=== PATIENT | female | born 1995 | race Caucasian/White ===

== ENCOUNTER → 2023-08-02 16:14 | Outpatient (REF) | payer BC, OTHER, SELFPAY ==
[2023-08-02 17:48] LABS: % Eosinophils 1.2 % (0-6); % Immature Granulocytes 0.3 % (0-0.5); % Lymphocytes 28.9 % (20.5-51.1); % Neutrophils 65.6 % (42.2-75.2); Absolute Lymphocytes 0.9 10^3/uL (1.2-3.4); Absolute Monocytes 0.1 10^3/uL (0.1-0.6); Absolute Neutrophils 2.1 10^3/uL (1.4-6.5); Hematocrit 31.1 % (37.0-47.0); Hemoglobin 11.3 g/dL (12.0-16.0); Mean Corp Hgb Conc. 36.3 g/dL (33.0-37.0); Mean Corpuscular Hgb 34.9 pg (27.0-31.0); Mean Platelet Volume 9.5 fL (7.4-10.4); Nucleated Red Blood Cells % 0 %; Platelet Count 142 10^3/uL (130-400); Red Blood Cell Count 3.24 10^6/uL (4.20-5.40); Red Cell Dist. Width 13.9 % (11.5-14.5); White Blood Cell Count 3.2 10^3/uL (4.8-10.8)
[2023-08-02 18:01] LABS: INR 1.03; PT 13.5 Sec (11.4-14.6)
[2023-08-02 18:02] LABS: APTT 35.6 Sec (23.4-35.0)
[2023-08-02 18:25] LABS: ALT (SGPT) 29 U/L (0-35); AST (SGOT) 34 U/L (14-36); Albumin 4.1 g/dl (3.5-5.0); Alkaline Phosphatase 120 U/L (38-126); Blood Urea Nitrogen 14 mg/dl (7-17); Calcium 9.6 mg/dl (8.4-10.2); Carbon Dioxide 29 mmol/L (22-30); Chloride 94 mmol/L (98-107); Glucose 98 mg/dl (70-99); Iron 150 ug/dl (37-170); Potassium 4.2 mmol/L (3.5-5.1); Sodium 128 mmol/L (135-145); Total Bilirubin 0.1 mg/dl (0.2-1.3); Total Protein 7.2 g/dl (6.3-8.2); eGFR > 60.00
[2023-08-02 18:34] LABS: Percent Saturation 48 % (20-50); Total Iron Binding Capacity 310 ug/dl (265-497)
[2023-08-05 21:29] LABS: Oxcarbazepine Metabolite 28 ug/mL (3-35)
== END ==
LOC: RAD 16:14
PROVIDERS: ATTENDING PHYSICIAN Family Medicine; FAMILY PHYSICIAN Neurological Surgery; REFERRING PHYSICIAN Internal Medicine
DX: R25.2 Cramp and spasm (principal); G82.50 Quadriplegia, unspecified; F41.9 Anxiety disorder, unspecified; D64.9 Anemia, unspecified; R63.4 Abnormal weight loss; Z51.81 Encounter for therapeutic drug level monitoring; G80.0 Spastic quadriplegic cerebral palsy; Z01.818 Encounter for other preprocedural examination
CPT/HCPCS: 36415; 74019; 80053; 80183; 83540; 83550; 84443; 85025; 85610; 85730; 93005

== ENCOUNTER → 2023-08-08 14:47 | Outpatient (REF) | payer BC, OTHER, SELFPAY ==
[2023-08-08 15:52] LABS: Blood Urea Nitrogen 15 mg/dl (7-17); Calcium 9.5 mg/dl (8.4-10.2); Carbon Dioxide 28 mmol/L (22-30); Chloride 97 mmol/L (98-107); Glucose 99 mg/dl (70-99); Potassium 3.8 mmol/L (3.5-5.1); Sodium 131 mmol/L (135-145); eGFR > 60.00
== END ==
LOC: REG 14:47
PROVIDERS: ATTENDING PHYSICIAN Family Medicine
DX: E87.1 Hypo-osmolality and hyponatremia (principal); G80.1 Spastic diplegic cerebral palsy; G82.50 Quadriplegia, unspecified
CPT/HCPCS: 36415; 80048

== ENCOUNTER → 2023-10-11 15:56 | Outpatient (REF) | payer BC, OTHER, SELFPAY ==
[2023-10-11 16:37] LABS: Blood Urea Nitrogen 12 mg/dl (7-17); Calcium 9.3 mg/dl (8.4-10.2); Carbon Dioxide 26 mmol/L (22-30); Chloride 100 mmol/L (98-107); Glucose 75 mg/dl (70-99); Potassium 4.2 mmol/L (3.5-5.1); Sodium 133 mmol/L (135-145); eGFR > 60.00
== END ==
LOC: REG 15:56
PROVIDERS: ATTENDING PHYSICIAN Family Medicine
DX: E87.1 Hypo-osmolality and hyponatremia (principal)
CPT/HCPCS: 36415; 80048

== ENCOUNTER → 2024-04-12 13:06 | Outpatient (REF) | payer OTHER, SELFPAY | LOC: RAD 13:06 | PROVIDERS: ATTENDING PHYSICIAN Internal Medicine Critical Care Medicine; FAMILY PHYSICIAN Family Medicine | DX: R05.1 Acute cough (principal); R09.89 Other specified symptoms and signs involving the circulatory and respiratory systems | CPT/HCPCS: 71046 ==

== ENCOUNTER → 2024-07-09 14:26 | Outpatient (REF) | payer OTHER, SELFPAY | LOC: HWRAD 14:26 | PROVIDERS: ATTENDING PHYSICIAN Urology; FAMILY PHYSICIAN Family Medicine | DX: N31.9 Neuromuscular dysfunction of bladder, unspecified (principal); R33.9 Retention of urine, unspecified; N39.41 Urge incontinence; N39.0 Urinary tract infection, site not specified | CPT/HCPCS: 76770 ==

== ENCOUNTER → 2024-08-15 09:39 | Outpatient (REF) | payer OTHER, SELFPAY ==
[2024-08-15 17:04] LABS: Urine Albumin 2+ (Neg - Trace); Urine Bilirubin Negative (Negative); Urine Character Cloudy (Clear); Urine Color Yellow; Urine Glucose Negative (Negative); Urine Ketone Negative (Negative); Urine Leukocyte 3+ (Negative); Urine Nitrite Positive (Negative); Urine Occult Blood 3+ (Negative); Urine Urobilinogen Negative (Neg - 1+)
[2024-08-15 17:16] LABS: Urine Bacteria Many (Negative); Urine Squamous Cell 0-2 /LPF (Few); Urine White Cell >100 /HPF (0-5)
== END ==
LOC: CLAB 09:39
PROVIDERS: ATTENDING PHYSICIAN Urology
DX: N39.0 Urinary tract infection, site not specified (principal)
CPT/HCPCS: 81003; 81015; 87077; 87086; 87186

== ENCOUNTER 2024-08-28 12:16 | Inpatient (IN) | payer OTHER, SELFPAY ==
[2024-08-28 08:34] VITALS: BP 131/103
--- NOTE | 2024-08-28 09:19 | ED.GENMED ---
History of Present Illness
General
Chief Complaint: Seizure
Source: family (Mother)
Time Seen by Provider: 08/28/24 08:49
History of Present Illness
History of Present Illness:
29-year-old female presents to the emergency room for evaluation of frequent seizures. Patient has history of cerebral palsy and seizure disorder. She is on multiple antiepileptic medications. Patient is followed at [facility] by Dr. Clinton.
Patient was recently diagnosed with a urinary tract infection and treated with Augmentin. Patient completed the course of antibiotics 5 or 6 days ago. Last seizure was this morning at about 7 AM. Patient was given a rescue nasal spray both last
night and this morning. Seizure activity is described as sometimes tonic-clonic but frequently facial movements.
Past History
Past History
ED Past Medical History: Other (cerebral palsy)
ED Past Surgical History: Orthopedic
Social History
Tobacco: Non-smoker
Alcohol: None
Drug: None
Living: with family
Phy Exam
Physical Exam
Physical Exam:
General: Awake, Alert, nonverbal for me, appears chronically ill
Vitals: unremarkable
Head: Atraumatic
Eyes: Pupils equal, EOMI
Throat: Airway intact, no exudates
Neck: Trachea midline
Lungs: Clear and equal b/l
Heart: Regular rate, no murmurs
Abd: Soft, firm, seems nontender, No pulsatile mass
Neuro: Contractures
Skin: Warm, dry, no rash
Extremities: pulses equal b/l, no edema
Course
Orders/Labs/Results
Orders:
Orders
08/28/24 09:15
Blood Culture Q30M
DAWN Source: Blood/Venous
Specimen Description:
08/28/24 09:17
Straight cath- Treatment ONCE
08/28/24 09:25
Blood Culture Q30M
DAWN Source: Blood/Venous
Specimen Description:
08/28/24 09:44
CMP [Comprehensive Metabolic Panel] Urgent
Complete Blood Count/With Diff Urgent
Urinalysis Reflex To Culture Urgent
Date Specimen was Collected: 08/28/24
Time Specimen was Collected: 09:27
Urine Microscopic Reflex Cult Urgent
Urine Culture Urgent
DAWN Source: U
Specimen Description:
Date Specimen was Collected: 08/28/24
Time Specimen was Collected: 09:
08/28/24 09:59
Obstruct Series W/PA Chest [CR Obstruct Series W/pa Chest] Urgent
Comment:
Reason For Exam: abd distension, vomiting
08/28/24 Lunch
IDDSI 6 - Soft & Bite Sized
Oral Supplement (If unsure of flavor order apple or vanilla): Ensure Enlive Hostetter
Supplement Frequency: TID
08/28/24 10:43
CefTRIAXone [Rocephin] 1,000 mg IV NOW STA
08/28/24 11:15
Sterile Water [Sterile Water For Injection] 10 ml .ROUTE .STK-MED ONE
08/28/24 11:59
Admit/Transfer Patient As Directed
Co-Sign Provider:
Level of Care: Inpatient admission
Assign to:: Telemetry
Physician / Group: gui marie
Diagnosis: Sepsis secondary to UTI
Patient Condition: Good
Reason for Telemetry: Other
Other Reason for Telemetry: Seizure/sepsis
Date to Stop Telemetry: 08/30/24
Time to Stop Telemetry: 11:00
Reason for Hospitalization: Sepsis secondary to UTI.
Breakthrough seizure
Expected length of stay greater than two midnights?: Yes
ELOS- Estimated Length of Stay in days: 2
I certify the patient meets the requirements for IP care: Yes
PRN Pain Medication Management As Directed
May give lesser potent ordered pain med per pt: Yes
preference::
Protocol:: Medication orders for pain may be administered in a
manner that supports deferring to patient preference
when the pt is:
- Requesting an ordered lesser potent pain medication.
Least to most potent pain medications are defined
as: acetaminophen < NSAID < tramadol < opioids
(morphine, oxycodone, hydromorphone).
- Requesting a lesser dose of the same medication IF
ORDERED.
- Requesting a less intrusive route of administration
if both routes are prescribed by the provider (PO <
IV).
08/28/24 12:02
Code Status As Directed
Resuscitation Status: Full Code
08/28/24 16:15
Acetaminophen [Tylenol] 650 mg PO Q4HPRN PRN
Bisacodyl [Dulcolax] 10 mg RECTAL [id number] PRN
Clonazepam [Klonopin] 0.5 mg PO BIDPRN PRN
Docusate W/Senna [Senokot-S] 1 tablet PO BIDPRN PRN
Ondansetron Injectable [Zofran] 4 mg IV Q6HPRN PRN
Polyethylene Glycol Powder [Miralax] 17 grams PO DAILYPRN PRN
midazolam [Nayzilam] 1 spray NASAL DAILYPRN PRN
08/28/24 16:15
NEUROLOGY CONSULT Routine
Consulting Provider: Jassi Morales
Was physician already notified: Yes
Reason for consult: Breakthrough seizure
Activity As Directed
Activity Level: As Tolerated
Pneumatic Compression Sleeves As Directed
Type: Knee high
Vital Signs As Directed
Frequency: Per unit guidelines
DX Deep Vein Thrombosis Video Routine
08/28/24 17:09
Loratadine [Claritin] 10 mg PO DAILYPRN PRN
08/28/24 17:15
Baclofen Pump [Patient's Own Baclofen Pump:] 1 each INTRATHEC ORDERED RATE
08/28/24 20:00
Methenamine Hippurate [Hiprex] 1 gram PO BID
Oxcarbazepine [Trileptal] 600 mg PO BID
08/28/24 22:00
HydrOXYZINE [Atarax] 50 mg PO HS
melatonin 10 mg PO HS
norethindrone-ethin estradiol [Alyacen 35 (28)] 1 tablet PO HS
zonisamide 150 mg PO HS
08/28/24 23:00
levetiracetam [Keppra] 1,500 mg PO BID@1100,2300
08/29/24 06:00
Basic Metabolic Panel IN AM
Complete Blood Count/No Diff IN AM
Magnesium IN AM
08/29/24 08:00
Ascorbic Acid [Vitamin C] 500 mg PO DAILY
Docusate Sodium [Colace] 300 mg PO DAILY
Lactobac/Bifidobac [Visbiome] 1 cap PO DAILY
Multivitamin [Theragran] 1 tablet PO DAILY
Sennosides [Senokot] 17.2 mg PO DAILY
Sertraline HCl [Zoloft] 200 mg PO DAILY
08/29/24 09:30
gabapentin [Gralise] 2,700 mg PO DAILY@0930
08/29/24 14:00
CefTRIAXone [Rocephin] 1,000 mg IV Q24H
08/30/24 11:00
DC Protocol for Telemetry ONCE
Abnormal Lab Results
08/28/24
09:44
WBC 12.4 H 10^3/uL
(4.8-10.8)
RBC 3.45 L 10^6/uL
(4.20-5.40)
Hct 34.4 L %
(37.0-47.0)
MCV 99.7 H fL
(81.0-99.0)
MCH 35.9 H pg
(27.0-31.0)
RDW 17.0 H %
(11.5-14.5)
Abs Immat Gran (auto) 0.1 H 10^3/uL
(0-0.05)
Absolute Neuts (auto) 11.7 H 10^3/uL
(1.4-6.5)
Absolute Lymphs (auto) 0.3 L 10^3/uL
(1.2-3.4)
Neutrophils % 94.7 H %
(42.2-75.2)
Lymphocytes % 2.3 L %
(20.5-51.1)
Carbon Dioxide 31 H mmol/L
(22-30)
Creatinine 0.5 L mg/dL
(0.6-1.0)
AST 37 H U/L
(14-36)
Alkaline Phosphatase 162 H U/L
(38-126)
Total Protein 8.9 H g/dl
(6.3-8.2)
Ur Occult Blood Reflex 2+ A
(Negative)
Urine Nitrite (Reflex) Positive A
(Negative)
Leukocyte Esterase Rfl 3+ A
(Negative)
Urine WBC (Reflex) 50-60 A /HPF
(0-5)
Urine Bacteria (Reflex) Many A
(Negative)
Urine Albumin (Reflex) 2+ A
(Neg - Trace)
08/28/24 09:44
08/28/24 09:44
Vital Signs
Initial and Last Documented VS:
Initial Vital Signs
Pulse Resp BP Pulse Ox
90 16 131/103 96
08/28/24 08:34 08/28/24 08:34 08/28/24 08:34 08/28/24 08:34
Last Documented Vital Signs
Temp Pulse Resp BP Pulse Ox
98.8 F 102 16 101/56 93
08/28/24 14:30 08/28/24 14:30 08/28/24 14:30 08/28/24 14:30 08/28/24 14:30
MDM/Problems Addressed
Differential Diagnosis Includes:
Subtherapeutic medication levels, breakthrough seizures due to UTI, electrolyte abnormality
MDM/Problems Addressed:
Pt's neurologist is DR. Clinton [phone]
Discussed patient's presentation with her neurologist. She was concerned about the number of seizures over the past couple days and recommends hospitalization for close monitoring. The patient's urine shows a significant number of white blood
cells as well as nitrates and leukocyte esterase. Unclear if she is truly infected or just colonized but given the increased seizure frequency I feel we should treat with antibiotics at least for now. Patient will be admitted to the hospitalist
service.
*Radiology
Radiology exam reviewed: radiology read reviewed
*Pulse Oximetry
Patient hypoxic: no
*Critical Care Note
Total Time (30-74mins, 75-104mins- exclusive of procedures): Not Applicable
ED Attending Note
-
Portions of this chart may have been created with voice recognition software.� Occasional wrong word or��sound alike� substitutions may have occurred due to the inherent limitations of voice recognition software.
Discharge Plan
Departure
Patient Disposition: Admit
Date of Disposition: 08/28/24
Time of Disposition: 10:46
Admit to: Med/Surg and IMU
Presentation/result/management discussed w/ accepting MD/DO: Hospitalist
Condition: Fair
Discharge Problem:
Acute lower UTI, Frequent seizures
Interventions
Interventions:
*Risk Screen - Suicide Last Done: 08/28/24 09:52
*General Assessment Last Done: 08/28/24 08:34
*Neglect/Abuse Screening Last Done: 08/28/24 09:52
*ED- Fall Risk Assessment Last Done: 08/28/24 09:25
*ED COVID-19 Vaccine History Last Done: 08/28/24 09:25
*Nursing Disposition Last Done: 08/28/24 15:55
ED- Cardiac Assessment Last Done: 08/28/24 09:25
ED- Neurological Assessment Last Done: 08/28/24 09:25
ED- Pulmonary Assessment Last Done: 08/28/24 09:25
Discharge Date and Time
Discharge Date/Time: 08/28/24 13:30
[2024-08-28 09:27] VITALS: BP 118/75
[2024-08-28 09:39] VITALS: BMI 17.1
[2024-08-28 10:00] VITALS: BP 126/82
[2024-08-28 10:00] LABS: % Basophils 0.3 % (0-2); % Immature Granulocytes 0.4 % (0-0.5); % Lymphocytes 2.3 % (20.5-51.1); % Monocytes 2.3 % (1.7-9.3); % Neutrophils 94.7 % (42.2-75.2); Absolute Immature Granulocytes 0.1 10^3/uL (0-0.05); Absolute Lymphocytes 0.3 10^3/uL (1.2-3.4); Absolute Monocytes 0.3 10^3/uL (0.1-0.6); Absolute Neutrophils 11.7 10^3/uL (1.4-6.5); Hematocrit 34.4 % (37.0-47.0); Hemoglobin 12.4 g/dL (12.0-16.0); Mean Corpuscular Hgb 35.9 pg (27.0-31.0); Mean Corpuscular Volume 99.7 fL (81.0-99.0); Mean Platelet Volume 10.2 fL (7.4-10.4); Nucleated Red Blood Cells % 0 %; Platelet Count 150 10^3/uL (130-400); Red Blood Cell Count 3.45 10^6/uL (4.20-5.40); White Blood Cell Count 12.4 10^3/uL (4.8-10.8)
[2024-08-28 10:08] LABS: Urine Albumin 2+ (Neg - Trace); Urine Bilirubin Negative (Negative); Urine Character Slightly Cloudy (Clear); Urine Color Yellow; Urine Glucose Negative (Negative); Urine Ketone Negative (Negative); Urine Leukocyte 3+ (Negative); Urine Nitrite Positive (Negative); Urine Occult Blood 2+ (Negative); Urine Specific Gravity 1.015 (<1.030); Urine Urobilinogen Negative (Neg - 1+); Urine pH 6.5 (5.0-9.0)
[2024-08-28 10:17] LABS: ALT (SGPT) 33 U/L (0-35); AST (SGOT) 37 U/L (14-36); Albumin 4.9 g/dl (3.5-5.0); Alkaline Phosphatase 162 U/L (38-126); Blood Urea Nitrogen 8 mg/dl (7-17); Calcium 9.6 mg/dl (8.4-10.2); Carbon Dioxide 31 mmol/L (22-30); Chloride 98 mmol/L (98-107); Estimated Creatinine Clearance 86 ml/min; Glucose 72 mg/dl (70-99); Potassium 4.6 mmol/L (3.5-5.1); Sodium 138 mmol/L (135-145); Total Bilirubin 0.4 mg/dl (0.2-1.3); Total Protein 8.9 g/dl (6.3-8.2); eGFR > 60.00
[2024-08-28 10:30] LABS: Urine Bacteria Many (Negative); Urine Red Blood Cell 0-2 /HPF (0-2); Urine Squamous Cell 0-2 /LPF (Few); Urine White Cell 50-60 /HPF (0-5)
--- NOTE | 2024-08-28 11:30 | HPS.HSE ---
Family Physician
-
Family Physician: Winter Moody
Chief Complaint
-
Breakthrough seizure, vomiting
History of Present Illness
Patient is 29-year-old female with past medical history known for cerebral palsy, seizure, frequent UTI, anxiety, who came to [place] [facility] today for evaluation of frequent seizure.
Patient was recent treated for urinary tract infection initially using Macrobid but had seizure and her family doctor switched her to Augmentin which she was completed 5 to 6 days ago with no further seizure activity.
But patient had foul-smelling urine last night and had seizure overnight on multiple occasions and 3 today morning.
Patient received 2 doses of rescue nasal spray but family brought the patient to the ER for further assessment.
In the ER patient noted to have evidence of UTI and leukocytosis, started on Rocephin.
Patient was seen and examined at bedside, poor communication, history was taken from family at bedside.
Will be admitted under hospitalist service.
Medical History
Past Medical History
Past Medical History: Reports Seizures and Other
Additional Past Medical History:
Cerebral palsy, recurrent UTI, anxiety/depression.
Past Surgical History: Reports Orthopedic
Social History
Tobacco: Non-smoker
Alcohol: None
Drug: None
Living: With Family
Family History
Family History: Not pertinent
Allergies / Home Medications
Allergies reflects when Allergies were last updated in [facility].
Home Medications with original date entered in [facility]
Allergy/Medication List:
Allergies
Allergy/AdvReac Type Severity Reaction Status Date / Time
lamotrigine [From Lamictal] Allergy Mild Rash Verified 08/28/24 08:40
Home Medications
Baclofen Pump [Patient's Own Baclofen Pump:] 0 ea SC .CONTINOUS 06/04/20
clonazepam 0.5 mg tablet 0.5 mg PO BIDPRN PRN anxiety 06/04/20
gabapentin 600 mg tablet,extended release 24 hr (Gralise) 2,700 mg PO DAILY@0930 06/04/20
hydroxyzine HCl 50 mg tablet 50 mg PO HS 06/04/20
levetiracetam 750 mg tablet (Keppra) 1,500 mg PO BID@1100,2300 06/04/20
oxcarbazepine 300 mg tablet 600 mg PO BID 06/04/20
sertraline 100 mg tablet 200 mg PO DAILY 06/04/20
Lactobac no.2-Bifidobac no.1-S. thermo 112.5 billion cell capsule (Visbiome) 1 cap PO DAILY 08/28/24
ascorbic acid (vitamin C) 500 mg tablet (Vitamin C) 500 mg PO DAILY 08/28/24
cranberry fruit concentrate 130 mg capsule (GennaMD) 130 mg PO DAILY 08/28/24
docusate sodium 100 mg capsule (Colace) 300 mg PO DAILY 08/28/24
fexofenadine 180 mg tablet 180 mg PO DAILYPRN PRN allergies 08/28/24
melatonin 10 mg tablet 10 mg PO HS 08/28/24
methenamine hippurate 1 gram tablet 1 g PO BID 08/28/24
midazolam 5 mg/spray (0.1 mL) nasal spray (Nayzilam) 1 spray intranasal DAILYPRN PRN seizures 08/28/24
norethindrone 1 mg-ethinyl estradiol 35 mcg tablet (Alyacen) 1 tab PO HS 08/28/24
sennosides 8.6 mg tablet (senna) 17.2 mg PO DAILY 08/28/24
therapeutic multivitamin 1 tab PO DAILY 08/28/24
zonisamide 50 mg capsule 150 mg PO HS 08/28/24
Review of Systems
-
Unable to obtain full review of systems at this time due to: Patient Non-verbal (Poor communication secondary to underlying cerebral palsy)
History Source: Family
Abdomen/GI: Reports Vomiting
: Reports Incontinence
Neurological: Reports Other (Seizure)
Physical Exam
Vital Signs
Vital Signs
Temp Pulse Resp BP Pulse Ox
98.7 F 85 16 118/75 93
08/28/24 09:30 08/28/24 09:30 08/28/24 09:30 08/28/24 09:27 08/28/24 09:30
Physical Exam
General: Other (Contracted)
HEENT: Moist mucous membranes, Atraumatic and PERRLA
Respiratory: Rales
Cardiac: S1/S2 and Regular Rhythm
Breast: Deferred by me
GI: Non Tender, Normal Bowel Sounds and Distended
Genito-urinary: Deferred by me
Musculoskeletal: No Clubbing, No Cyanosis and Other (Contracted extremities)
Skin: Warm and Rash (Bilateral lower extremity)
Neuro: Other (Contracted)
Hematologic/Lymphatic: No Lymphadenopathy
Psych: Calm
Laboratory Results
-
08/28/24 09:44
08/28/24 09:44
Laboratory Results
Total Bilirubin 0.4 mg/dl (0.2-1.3) 08/28/24 09:44
AST 37 U/L (14-36) H 08/28/24 09:44
ALT 33 U/L (0-35) 08/28/24 09:44
Alkaline Phosphatase 162 U/L (38-126) H 08/28/24 09:44
Data Reviewed
-
Diagnostic Radiology: Report Reviewed by me
CT Scan: Report Reviewed by me
Medical Tests (Nuc Med, Echo, EKG etc): Report Reviewed by me
Lab Data: Labs Reviewed by me
Old Records: Reviewed
Impression/Plan
-
IMPRESSION:
29-year-old female presents to the emergency room for evaluation of frequent seizures. Patient has history of cerebral palsy and seizure disorder. She is on multiple antiepileptic medications. Patient is followed at [facility] by Dr. Clinton.
Patient was recently diagnosed with a urinary tract infection and treated with Augmentin. Patient completed the course of antibiotics 5 or 6 days ago. Started to have foul smelling urine again and developed seizure.
Last seizure was morning of day of admission.
Patient started on IV Rocephin and will be admitted under hospitalist.
Assessment/plan:
Breakthrough seizure
Possible triggered by urinary tract infection.
Continue current seizure regimen
Neurology consult
Seizure precaution
Sepsis secondary to UTI
Patient meets sepsis criteria on admission
Heart rate 104
WBCs 12.4
No fever
Source of infection is UTI
IV antibiotic in form of Rocephin
Blood culture pending
Urine culture pending
Most recent urine culture was pansensitive E. coli
Cerebral palsy
Continue baclofen pump.
Continue home meds.
Anxiety/depression
Continue home meds
CODE STATUS: Full code
DVT prophylaxis: SCDs
Diet: Regular diet (soft, small bites).
Total time spent on today's encounter was 75 minutes which included time spent in counseling the patient/family regarding diagnosis and treatment plan as listed above, goals of care, and symptom management. Case was discussed with nursing staff,
specialists, and care coordinators/case management. All labs and imaging personally reviewed by me. Remainder the time spent in detailed review of previous records, lab data, imaging, and other medical provider documentation.
[2024-08-28] MEDS: ROCEPHIN 1000 MG IV (11:34)
[2024-08-28 12:16] VITALS: BP 111/92
[2024-08-28 14:30] VITALS: BP 101/56
--- NOTE | 2024-08-28 14:50 | PTCARENOTE ---
pt brought from ED during [facility] down[facility]. attending paged for admission orders.
--- NOTE | 2024-08-28 15:15 | PTCARENOTE ---
attending writing downtime admission orders. pt is NV, HX CP. Mother reports this is normal for her s/p seizure, however baseline pt can answer simple questions. Pt has b/l seizure pads on bed. Pt on monitor NSR. lung sounds diminished throughout,
shallow poor effort. pt incont of b+B. Bedbound. contracted. Skin CDI. No edema +PP b/l.
--- NOTE | 2024-08-28 15:54 | EDRN ---
Patient taken to room 331-1 on stretcher by avionics repair technician during [employer] downtime.
--- NOTE | 2024-08-28 16:05 | DOWNTIME ---
There was a [employer] [employer] Downtime on 08/28/2024 from 1230 to 08/28/2024 at 1550. Downtime documentation of patient's care, including medication administrations, has been reconciled in the electronic record per guidelines. Refer to the
patient's paper chart under the miscellaneous tab to see printed paper medication records and downtime forms.
[2024-08-28] MEDS: ZOFRAN 4 MG IV (17:09)
[2024-08-28] MEDS: KEPPRA 1500 MG IV (17:20)
--- NOTE | 2024-08-28 17:23 | CON.NEURO ---
Neuro Assessment/Plan
Assessment
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
Patient's worsening of seizure control currently is most likely due to continuing toxic metabolic challenges in the form of urinary tract infection
Plan
Increase patient's usual zonisamide from 150 mg to dosing of 200 mg daily
Continue patient's usual levetiracetam at 1500 mg twice a day
Continue patient's usual oxcarbazepine at 600 mg twice a day
Continue patient's usual sertraline 200 mg daily
No indication at this time patient should have alterations to her usual baclofen pump dosing
Agree with recurrent use of midazolam as needed
Should the patient not have return of usual cognitive function 24 hours after increased seizure activity, repeat EEG and neuroimaging may be of benefit
Agree with search for additional potential causes for infection
Will follow peripherally
Consultation
Order
Date of Consultation: 08/28/24
Requesting Provider:
Reason for Consult:
Subjective/Objective
Subjective Data
Date of Service: August 28, 2024
Patient presented to this [facility] emergency department due to worsening seizure frequency. The patient has a history of seizures beginning in 2014 described as 1 to 5 minutes in duration typically oral or generalized arm and head as well as eye
movements. Patient typically does not experience seizures unless significant stressors are present. Stressors may include inadequate sleep, generalized infection.
In the past, the patient has been exposed to levetiracetam, lamotrigine, oxcarbazepine, zonisamide.
Due to a recurrent urinary tract infection, the patient was placed on Augmentin which was discontinued 6 days ago. However, the patient's mother who is her primary care provider, believe that the patient continue to have symptoms suggestive of
urinary tract infection.
The patient subsequently began experiencing recurrent seizures for which the patient was provided with midazolam nasal spray on 2 separate occasions. As the patient remained postictal, they presented to this hospital's emergency department.
According to the patient's mother who is the only historian, the patient typically has a marked reduction in awareness and speech output following the use of benzodiazepines and/or recurrent seizures.
Objective Data
Vital Signs
Temp Pulse Resp BP Pulse Ox
37.1 C 102 16 101/56 93
08/28/24 14:30 08/28/24 14:30 08/28/24 14:30 08/28/24 14:30 08/28/24 14:30
Lab Results
08/28/24 09:44
08/28/24 09:44
Sodium 138 mmol/L (135-145) 08/28/24 09:44
Potassium 4.6 mmol/L (3.5-5.1) 08/28/24 09:44
BUN 8 mg/dl (7-17) 08/28/24 09:44
Glucose 72 mg/dl (70-99) 08/28/24 09:44
Calcium 9.6 mg/dl (8.4-10.2) 08/28/24 09:44
Patient Allergies
lamotrigine (From Lamictal) Allergy (Mild, Verified 08/28/24 08:40)
Rash
Review of Systems
-
Unable to obtain full review of systems at this time due to: Aphasia
History Source: Patient
All other systems: Reviewed and negative
Physical Exam
-
General: No Apparent Distress, Appears Stated Age and Other (Short stature)
Eyes: OU Absent Papilledema, Round OU, [place] Conjunctivae and No Ptosis
HEENT: Anicteric and Moist Mucous Membranes
Neck: Full Range of Motion
Respiratory: No Dyspnea
Cardiac: No JVD
GI: Non-distended
Skin: Unremarkable
Extremities: No Clubbing, No Cyanosis and No Edema
Psych: Unable to Assess
Extended Neurological Exam
Mood & Affect: Unable to Assess
Attention Span & Concentration: Awake; Negative Alert, Interactive or Closes Eyes after Stimulation
Memory: Unable to Assess
Tremor: Hand Tremor Absent and Head Tremor Absent
Involuntary Movement: None
Speech: Mute
Cranial Nerve II: Left Eye: Pupillary Reactivity Unremarkable, Pupillary Size Unremarkable and Unable to Assess
Cranial Nerve II: Right Eye: Pupillary Reactivity Unremarkable, Pupillary Size Unremarkable and Unable to Assess
Cranial Nerves III, IV, : Extraocular Movement: Grossly Intact
Cranial Nerve VII: Facial Symmetry: Normal Facial Symmetry
Cranial Nerve VIII: Hearing: Unremarkable Hearing to Normal Conversational Volume
Cranial Nerves IX, X: Palate Movement: Palate Elevation Symmetric
Cranial Nerve XI: Shoulder Shrug: Unremarkable
Cranial Nerve XII: Tongue Protusion: Midline
Muscle Strength, Overall: Spontaneously Moves (Minimally)
Muscle Bulk & Tone: Bulk Unremarkable and Increased Tone (Diffusely significantly proximally less than distally)
Pronator Drift: Unable to Assess
Deep Tendon Reflexes: Clonus (Sustained at left ankle), 3+ (Right ankle) and Otherwise Unremarkable
Cold Sensation: Unable to Assess
Vibration Sensation: Unable to Assess
Touch Sensation: Negative Withdrawal to Pain
Coordination: Unable to Assess
Babinski Sign: Absent Bilaterally
Gait & Station: Unable to Assess
Data Reviewed
-
Labs: Ordered and Report Reviewed
Reviewed with: Physician and Family
Old Records: Summarized
Medications
-
Active Medications
Generic Name Dose Route Start Last Admin
Trade Name Freq PRN Reason Stop Dose Admin
Acetaminophen 650 mg 08/28/24 16:15
Acetaminophen 325 Mg Tablet PO 09/25/24 16:14
Q4HPRN PRN
mild pain/VARGAS/temp> 100.4F
Ascorbic Acid 500 mg 08/29/24 08:00
Ascorbic Acid 500 Mg Tablet PO 09/26/24 07:59
DAILY HUGH
Baclofen 1 each 08/28/24 17:15
Baclofen Pump - Patient's Own INTRATHEC 09/25/24 17:14
ORDERED RATE HUGH
Bisacodyl 10 mg 08/28/24 16:15
Bisacodyl 10 Mg Rectal Suppository RECTAL 09/25/24 16:14
[id number] PRN
constipation
Ceftriaxone Sodium 1,000 mg 08/29/24 14:00
Ceftriaxone 1000 Mg / 10 Ml Vial IV
Q24H HUGH
Clonazepam 0.5 mg 08/28/24 16:15
Clonazepam 0.5 Mg Tablet PO 09/25/24 16:14
BIDPRN PRN
anxiety
Docusate Sodium 300 mg 08/29/24 08:00
Docusate Sodium 100 Mg Capsule PO 09/26/24 07:59
DAILY HUGH
Hydroxyzine HCl 50 mg 08/28/24 22:00
Hydroxyzine 25 Mg Tablet PO 09/25/24 21:59
HS HUGH
Lactobacillus/Bifidobacterium 1 cap 08/29/24 08:00
Lactobac/Bifidobac (Visbiome) PO 09/26/24 07:59
DAILY HUGH
Levetiracetam 1,500 mg 08/28/24 23:00
Levetiracetam 500 Mg Regular Release Tablet PO 09/25/24 22:59
BID@1100,2300 HUGH
Loratadine 10 mg 08/28/24 17:09
Loratadine 10 Mg Tablet PO 09/25/24 17:08
DAILYPRN PRN
allergies
Lorazepam 1 mg 08/28/24 12:24
Lorazepam 2 Mg/Ml Vial IV 09/25/24 12:23
Q4HPRN PRN
Seizure
Melatonin 10 mg 08/28/24 22:00
Melatonin 5 Mg Tablet PO 09/25/24 21:59
HS HUGH
Methenamine Hippurate 1 gram 08/28/24 20:00
Methenamine Hippurate 1 Gram Tablet PO
BID HUGH
Multivitamins Therapeutic 1 tablet 08/29/24 08:00
Multivitamin Tablet PO 09/26/24 07:59
DAILY HUGH
Non-Formulary Medication 2,700 mg 08/29/24 09:30
Gabapentin [Gralise] PO 09/26/24 09:29
DAILY@0930 HUGH
Non-Formulary Medication 1 spray 08/28/24 16:15
Midazolam [Nayzilam] NASAL
DAILYPRN PRN
seizures
Non-Formulary Medication 1 tablet 08/28/24 22:00
Norethindrone-Ethin Estradiol [Alyacen ()] PO 09/25/24 21:59
HS HUGH
Non-Formulary Medication 300 mg 08/29/24 09:30
Gabapentin [Gralise] PO 09/26/24 09:29
DAILY@0930 HUGH
Ondansetron HCl 4 mg 08/28/24 16:15 08/28/24 17:09
Ondansetron 4 Mg/2 Ml Vial IV 09/25/24 16:14 4 mg
Q6HPRN PRN Administration
nausea and vomiting
Oxcarbazepine 600 mg 08/28/24 20:00
Oxcarbazepine 300 Mg Tablet PO 09/25/24 19:59
BID HUGH
Polyethylene Glycol 17 grams 08/28/24 16:15
Polyethylene Glycol Powder 17 Grams Packet PO 09/25/24 16:14
DAILYPRN PRN
constipation
Senna/Docusate Sodium 1 tablet 08/28/24 16:15
Docusate W/Senna (Cesia-Colace) Tablet PO 09/25/24 16:14
BIDPRN PRN
constipation
Sennosides 17.2 mg 08/29/24 08:00
Sennosides (Senokot) 8.6 Mg Tablet PO 09/26/24 07:59
DAILY HUGH
Sertraline HCl 200 mg 08/29/24 08:00
Sertraline 100 Mg Tablet PO 09/26/24 07:59
DAILY HUGH
Sodium Chloride 0 flush 08/28/24 13:00
Sodium Chloride 0.9% (Flush) Syringe IV 09/25/24 12:59
PER PROTOCOL HUGH
Zonisamide 50 mg/ Zonisamide 150 mg 08/28/24 22:00
100 mg PO 09/25/24 21:59
HS HUGH
Home Medications
�Medication �Instructions �Recorded
Baclofen Pump [Patient's Own 0 ea SC .CONTINOUS 06/04/20
Baclofen Pump:]
clonazepam 0.5 mg tablet 0.5 mg PO BIDPRN PRN anxiety 06/04/20
gabapentin 600 mg tablet,extended 2,400 mg PO DAILY@92906/04/20
release 24 hr (Gralise)
hydroxyzine HCl 50 mg tablet 50 mg PO HS 06/04/20
levetiracetam 750 mg tablet 1,500 mg PO BID@1100,2300 06/04/20
(Keppra)
oxcarbazepine 300 mg tablet 600 mg PO BID 06/04/20
sertraline 100 mg tablet 200 mg PO DAILY 06/04/20
Lactobac no.2-Bifidobac no.1-S. 1 cap PO DAILY 08/28/24
thermo 112.5 billion cell capsule
(Visbiome)
ascorbic acid (vitamin C) 500 mg 500 mg PO DAILY 08/28/24
tablet (Vitamin C)
cranberry fruit concentrate 130 mg 130 mg PO DAILY 08/28/24
capsule (GennaMD)
docusate sodium 100 mg capsule 300 mg PO DAILY 08/28/24
(Colace)
fexofenadine 180 mg tablet 180 mg PO DAILYPRN PRN allergies 08/28/24
gabapentin 300 mg tablet,extended 300 mg PO DAILY@92908/28/24
release 24 hr (Gralise)
melatonin 10 mg tablet 10 mg PO HS 08/28/24
methenamine hippurate 1 gram tablet 1 g PO BID 08/28/24
midazolam 5 mg/spray (0.1 mL) 1 spray intranasal DAILYPRN PRN 08/28/24
nasal spray (Nayzilam) seizures
norethindrone 1 mg-ethinyl 1 tab PO HS 08/28/24
estradiol 35 mcg tablet (Alyacen)
sennosides 8.6 mg tablet (senna) 17.2 mg PO DAILY 08/28/24
therapeutic multivitamin 1 tab PO DAILY 08/28/24
zonisamide 50 mg capsule 150 mg PO HS 08/28/24
Past History
Past History
ED Past Medical History: Psychiatric (OCD) and Other (cerebral palsy, intractable epilepsy, spastic quadriplegia, neuromuscular scoliosis)
ED Past Surgical History: Orthopedic
Social History
Tobacco: Non-smoker
Alcohol: None
Drug: None
Living: with family
[2024-08-28 19:16] LABS: Vitamin D, 25-OH*** 67.2 ng/mL (30-80)
[2024-08-28 19:56] LABS: Free T4 0.47 ng/dl (0.78-2.19)
[2024-08-28 20:00] VITALS: BMI 17.0
[2024-08-28 20:05] LABS: Folate 17.7 ng/ml (2.76-20); Vitamin B12 796 pg/ml (239-931)
[2024-08-28 20:11] VITALS: BP 90/55
[2024-08-28] MEDS: HIPREX 1 GRAM PO (22:16)
[2024-08-28] MEDS: ATARAX 50 MG PO (22:16)
[2024-08-28] MEDS: TRILEPTAL 600 MG PO (22:16)
[2024-08-28] MEDS: ZONEGRAN 200 MG PO (22:17)
[2024-08-28] MEDS: MELATONIN 10 MG PO (22:17)
[2024-08-28] MEDS: NON-FORMULARY ITEM 1 TABLET PO (22:17)
[2024-08-28] MEDS: KEPPRA 1500 MG PO (22:18)
[2024-08-29] VITALS (7 sets, daily range): BP systolic 107–127; BP diastolic 57–86
[2024-08-29 06:31] LABS: Hematocrit 28.6 % (37.0-47.0); Hemoglobin 10.2 g/dL (12.0-16.0); Mean Corp Hgb Conc. 35.7 g/dL (33.0-37.0); Mean Corpuscular Hgb 35.7 pg (27.0-31.0); Mean Platelet Volume 9.7 fL (7.4-10.4); Platelet Count 162 10^3/uL (130-400); Red Blood Cell Count 2.86 10^6/uL (4.20-5.40); Red Cell Dist. Width 17.1 % (11.5-14.5); White Blood Cell Count 4.4 10^3/uL (4.8-10.8)
[2024-08-29 06:44] LABS: Blood Urea Nitrogen 9 mg/dl (7-17); Calcium 9.1 mg/dl (8.4-10.2); Carbon Dioxide 28 mmol/L (22-30); Chloride 103 mmol/L (98-107); Estimated Creatinine Clearance 86 ml/min; Glucose 81 mg/dl (70-99); Magnesium 1.5 mg/dl (1.6-2.3); Potassium 3.3 mmol/L (3.5-5.1); Sodium 137 mmol/L (135-145); eGFR > 60.00
[2024-08-29 06:55] LABS: Erythrocyte Sed Rate 63 mm/hour (0-20)
[2024-08-29] MEDS: ZOLOFT 200 MG PO (08:43)
[2024-08-29] MEDS: NON-FORMULARY ITEM 2400 MG PO (08:50)
[2024-08-29] MEDS: NON-FORMULARY ITEM 300 MG PO (08:51)
[2024-08-29] MEDS: KCL ELIXIR 40 MEQ PO (09:03)
[2024-08-29] MEDS: MAGNESIUM SULFATE 50 IV (09:15)
--- NOTE | 2024-08-29 09:40 | PTOTSP ---
Speech Language Pathology
Pt seen for clinical bedside swallow evaluation. Mother present who reported pt had VSE completed at another institution approximately 1 year ago. Mother states that pt microaspirates, but has never had PNA. At times, she is laid prone to allow
secretions in pharynx to spill out of oral cavity. Her twin sister is an OUTSIDE SALES EXECUTIVE. She drinks thin liquids and eats mostly softer solids. If meat is provided, it is shredded. She is able to eat grilled cheese and PB&J. Pt not currently verbal, which
is post-ictal state per mother. Pt typically verbal.
Suction set up in room. P.O. trials of thin liquids and puree provided by mother. Impulsive rate of intake with liquids with cough response. Mother appropriately removed straw from oral cavity for single sips. Delayed initiation of oral
management typically noted with open mouth posture up to 10 seconds prior to initiating bolus management. Lingual thrusting typically noted.
Pt not back to baseline yet per mother. Mother is caregiver and well aware of how best to feed pt/what she is able to safely consume. To avoid restricting options, would liberalize diet, as mother will only order what is safe for pt at that time.
Recommend:
(1) Regular solids/thin liquids
(2) Aspiration precautions: sit upright, slow rate, single sips (pinch straw), ensure oral cavity clear post P.O. intake, suction oral cavity as needed
(3) Meds as tolerated
(4) OUTSIDE SALES EXECUTIVE to sign off. Pt without PNA and family able to manage at this time. Please reconsult as indicated
[2024-08-29] MEDS: TRILEPTAL 600 MG PO ×2 (11:26→22:19)
[2024-08-29] MEDS: VITAMIN C 500 MG PO (11:26)
[2024-08-29] MEDS: THERAGRAN 1 TABLET PO (11:26)
[2024-08-29] MEDS: HIPREX 1 GRAM PO ×2 (11:26→22:18)
[2024-08-29] MEDS: KEPPRA 1500 MG PO ×2 (11:26→22:22)
[2024-08-29] MEDS: VISBIOME 1 CAP PO (11:53)
[2024-08-29] MEDS: COLACE 300 MG PO (11:53)
[2024-08-29] MEDS: SENOKOT 17.2 MG PO (11:53)
[2024-08-29] MEDS: ROCEPHIN 1000 MG IV (13:57)
[2024-08-29] MEDS: STERILE WATER FOR INJECTION 10 ML IV (13:57)
--- NOTE | 2024-08-29 14:45 | W.PN.HOSP.TC ---
Today's Communication/Plan
-
Pending urine culture sensitivity,
discharge tomorrow.
Assessment / Plan
Assessment / Plan
Impression:
29-year-old female presents to the emergency room for evaluation of frequent seizures. Patient has history of cerebral palsy and seizure disorder. She is on multiple antiepileptic medications. Patient is followed at [facility] by Dr. Clinton.
Patient was recently diagnosed with a urinary tract infection and treated with Augmentin. Patient completed the course of antibiotics 5 or 6 days ago. Started to have foul smelling urine again and developed seizure.
Last seizure was morning of day of admission.
Patient started on IV Rocephin and will be admitted under hospitalist.
Assessment/plan:
Breakthrough seizure
Possible triggered by urinary tract infection.
Continue current seizure regimen
Neurology consulted
zonisamide increased from 150 mg to dosing of 200 mg daily
Seizure precaution
Sepsis secondary to UTI
Patient meets sepsis criteria on admission
Heart rate 104
WBCs 12.4
No fever
Source of infection is UTI
IV antibiotic in form of Rocephin
Blood culture pending
Urine culture E-coli, pending sensitivity
Most recent urine culture was pansensitive E. coli
Cerebral palsy
Continue baclofen pump.
Continue home meds.
Anxiety/depression
Continue home meds
CODE STATUS: Full code
DVT prophylaxis: SCDs
Diet: Regular diet (as tolerated.
Family communication: Discussed with mother at bedside
Disposition: Pending urine culture sensitivity, discharge tomorrow.
Total time spent on today's encounter was 65 minutes which included time spent in counseling the patient/family regarding diagnosis and treatment plan as listed above, goals of care, and symptom management. Case was discussed with nursing staff,
specialists, and care coordinators/case management. All labs and imaging personally reviewed by me. Remainder the time spent in detailed review of previous records, lab data, imaging, and other medical provider documentation.
Anticipated Discharge: Within 24 hours
Subjective/Interval History
-
Date of Service: August 29, 2024
Patient seen and examined at bedside.
Mother at bedside.
No further seizure.
Objective Data
-
Labs:
Laboratory Results
08/29/24
06:00
WBC 4.4 L
Hgb 10.2 L
Hct 28.6 L
Plt Count 162
Sodium 137
Potassium 3.3 L D
Chloride 103
Carbon Dioxide 28
BUN 9
Creatinine 0.4 L
Glucose 81
Calcium 9.1
Vital Signs:
Vital Signs
Temp Pulse Resp BP Pulse Ox
97.9 F 86 17 123/82 96
08/29/24 10:43 08/29/24 10:43 08/29/24 10:43 08/29/24 10:43 08/29/24 10:43
I&O
08/28/24 08/29/24 08/30/24
06:59 06:59 06:59
Intake Total 100 / 100
Balance 100 / 100
Physical Exam
-
General: Comfortable
HEENT: Moist Mucous Membranes, No Ptosis, PERRLA and Nose Appears Normal
Respiratory: Rales and Non Labored Respirations
Cardiac: Regular Rhythm and S1/S2
Breast: Deferred by me
GI: Soft, Nontender, Nondistended and Normal Bowel Sounds
Genito-urinary: No Costovertebral Tender
Musculoskeletal: No Edema and Other (Contracted extremities)
Skin: Rash (Bilateral lower extremity rash)
Neuro: Awake and Other (Contracted upper and lower extremities.)
Psych: Calm
Data Reviewed
-
Diagnostic Radiology: Image personally visualized and interpreted and Report Reviewed by me
CT Scan: Image personally visualized and interpreted and Report Reviewed by me
Ultrasound: Image personally visualized and interpreted and Report Reviewed by me
MRI: Image personally visualized and interpreted and Report Reviewed by me
Medical Tests (Nuc Med, Echo etc): Image personally visualized and interpreted and Report Reviewed by me
Labs: Labs Reviewed by me
Old Records: Reviewed
--- NOTE | 2024-08-29 17:58 | PTCARENOTE ---
Pt noted to be nonverbal from the start of this shift. Eyes open and alert, but not able to make needs known. Towards the end of the shift, pt began to speak sentences to her family and answer yes or no questions. Family present all shift and will
stay the night. Pt changed and turned Q2 this shift. No pain reported. All needs met at this time. All family questions answered. Plan of care ongoing.
[2024-08-29] MEDS: ATARAX 50 MG PO (22:19)
[2024-08-29] MEDS: MELATONIN 10 MG PO (22:19)
[2024-08-29] MEDS: ZONEGRAN 200 MG PO (22:19)
[2024-08-29] MEDS: NON-FORMULARY ITEM 1 TABLET PO (22:20)
[2024-08-30 03:29] VITALS: BP 111/69
[2024-08-30 07:00] VITALS: BP 106/74
[2024-08-30 07:11] LABS: Hematocrit 29.1 % (37.0-47.0); Hemoglobin 10.3 g/dL (12.0-16.0); Mean Corp Hgb Conc. 35.4 g/dL (33.0-37.0); Mean Corpuscular Hgb 35.4 pg (27.0-31.0); Mean Platelet Volume 9.6 fL (7.4-10.4); Platelet Count 135 10^3/uL (130-400); Red Blood Cell Count 2.91 10^6/uL (4.20-5.40); Red Cell Dist. Width 16.9 % (11.5-14.5); White Blood Cell Count 4.8 10^3/uL (4.8-10.8)
--- NOTE | 2024-08-30 07:41 | W.PN.NEURO.1 ---
Today's Communication / Plan
-
? Thyroid dysfunction
Increased patient's usual zonisamide from 150 mg to dosing of 200 mg daily
Continue patient's usual levetiracetam at 1500 mg twice a day
Continue patient's usual oxcarbazepine at 600 mg twice a day
Continue patient's usual sertraline 200 mg daily
No indication at this time patient should have alterations to her usual baclofen pump dosing
Agree with recurrent use of midazolam nasal spray as outpatient as needed
Neuro Assessment/Plan
Assessment
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
Patient's worsening of seizure control currently is most likely due to continuing toxic metabolic challenges in the form of urinary tract infection
Plan
? Thyroid dysfunction
Increased patient's usual zonisamide from 150 mg to dosing of 200 mg daily
Continue patient's usual levetiracetam at 1500 mg twice a day
Continue patient's usual oxcarbazepine at 600 mg twice a day
Continue patient's usual sertraline 200 mg daily
No indication at this time patient should have alterations to her usual baclofen pump dosing
Agree with recurrent use of midazolam nasal spray as outpatient as needed
Should the patient not have return of usual cognitive function 24 hours after increased seizure activity, repeat EEG and neuroimaging may be of benefit
Agree with search for additional potential causes for infection
Will follow peripherally
Subjective/Objective
Subjective Data
Date of Service: August 30, 2024
Objective Data
Vital Signs
Temp Pulse Resp BP Pulse Ox
36.6 C 58 14 111/69 95
08/30/24 03:29 08/30/24 03:29 08/30/24 03:29 08/30/24 03:29 08/30/24 03:29
Lab Results
08/30/24 06:42
Sodium 137 mmol/L (135-145) 08/29/24 06:00
Potassium 3.3 mmol/L (3.5-5.1) L D 08/29/24 06:00
BUN 9 mg/dl (7-17) 08/29/24 06:00
Glucose 81 mg/dl (70-99) 08/29/24 06:00
Calcium 9.1 mg/dl (8.4-10.2) 08/29/24 06:00
Vitamin B12 796 pg/ml (239-931) 08/28/24 09:44
Patient Allergies
lamotrigine (From Lamictal) Allergy (Mild, Verified 08/28/24 08:40)
Rash
Data Reviewed
-
Labs: Report Reviewed
Old Records: Summarized
Past History
Past History
ED Past Medical History: Psychiatric (OCD) and Other (cerebral palsy, intractable epilepsy, spastic quadriplegia, neuromuscular scoliosis)
ED Past Surgical History: Orthopedic
Social History
Tobacco: Non-smoker
Alcohol: None
Drug: None
Living: with family
Medications
-
Medications:
Generic Name Dose Route Start Last Admin
Trade Name Freq PRN Reason Stop Dose Admin
Acetaminophen 650 mg 08/28/24 16:15
Acetaminophen 325 Mg Tablet PO 09/25/24 16:14
Q4HPRN PRN
mild pain/VARGAS/temp> 100.4F
Ascorbic Acid 500 mg 08/29/24 08:00 08/29/24 11:26
Ascorbic Acid 500 Mg Tablet PO 09/26/24 07:59 500 mg
DAILY HUGH Administration
Baclofen 1 each 08/28/24 17:15
Baclofen Pump - Patient's Own INTRATHEC 09/25/24 17:14
ORDERED RATE HUGH
Bisacodyl 10 mg 08/28/24 16:15
Bisacodyl 10 Mg Rectal Suppository RECTAL 09/25/24 16:14
[id number] PRN
constipation
Ceftriaxone Sodium 1,000 mg 08/29/24 14:00 08/29/24 13:57
Ceftriaxone 1000 Mg / 10 Ml Vial IV 1,000 mg
Q24H HUGH Administration
Clonazepam 0.5 mg 08/28/24 16:15
Clonazepam 0.5 Mg Tablet PO 09/25/24 16:14
BIDPRN PRN
anxiety
Docusate Sodium 300 mg 08/29/24 08:00 08/29/24 11:53
Docusate Sodium 100 Mg Capsule PO 09/26/24 07:59 300 mg
DAILY HUGH Administration
Hydroxyzine HCl 50 mg 08/28/24 22:00 08/29/24 22:19
Hydroxyzine 25 Mg Tablet PO 09/25/24 21:59 50 mg
HS HUGH Administration
Lactobacillus/Bifidobacterium 1 cap 08/29/24 08:00 08/29/24 11:53
Lactobac/Bifidobac (Visbiome) PO 09/26/24 07:59 1 cap
DAILY HUGH Administration
Levetiracetam 1,500 mg 08/28/24 23:00 08/29/24 22:22
Levetiracetam 500 Mg Regular Release Tablet PO 09/25/24 22:59 1,500 mg
BID@1100,2300 HUGH Administration
Loratadine 10 mg 08/28/24 17:09
Loratadine 10 Mg Tablet PO 09/25/24 17:08
DAILYPRN PRN
allergies
Lorazepam 1 mg 08/28/24 12:24
Lorazepam 2 Mg/Ml Vial IV 09/25/24 12:23
Q4HPRN PRN
Seizure
Melatonin 10 mg 08/28/24 22:00 08/29/24 22:19
Melatonin 5 Mg Tablet PO 09/25/24 21:59 10 mg
HS HUGH Administration
Methenamine Hippurate 1 gram 08/28/24 20:00 08/29/24 22:18
Methenamine Hippurate 1 Gram Tablet PO 1 gram
BID HUGH Administration
Multivitamins Therapeutic 1 tablet 08/29/24 08:00 08/29/24 11:26
Multivitamin Tablet PO 09/26/24 07:59 1 tablet
DAILY HUGH Administration
Gabapentin [Gralise] 0 mg 08/29/24 09:30 08/29/24 08:50
600 Mg Tablet Er PO 09/26/24 09:29 2,400 mg
2400mg Po Daily@0930 DAILY@0930 HUGH Administration
Non-Formulary Medication 1 spray 08/28/24 16:15
Midazolam [Nayzilam] NASAL
DAILYPRN PRN
seizures
Norethindrone-Ethin 0 tablet 08/28/24 22:00 08/29/24 22:20
Estradiol [Alyacen 1 PO 09/25/24 21:59 1 tablet
/35 (28)] 1-35 Mg- HS HUGH Administration
Mcg Po Hs
Gabapentin [Gralise] 0 mg 08/29/24 09:30 08/29/24 08:51
300 Mg Er Po Daily@ PO 09/26/24 09:29 300 mg
0930 DAILY@0930 HUGH Administration
Ondansetron HCl 4 mg 08/28/24 16:15 08/28/24 17:09
Ondansetron 4 Mg/2 Ml Vial IV 09/25/24 16:14 4 mg
Q6HPRN PRN Administration
nausea and vomiting
Oxcarbazepine 600 mg 08/28/24 20:00 08/29/24 22:19
Oxcarbazepine 300 Mg Tablet PO 09/25/24 19:59 600 mg
BID HUGH Administration
Polyethylene Glycol 17 grams 08/28/24 16:15
Polyethylene Glycol Powder 17 Grams Packet PO 09/25/24 16:14
DAILYPRN PRN
constipation
Senna/Docusate Sodium 1 tablet 08/28/24 16:15
Docusate W/Senna (Cesia-Colace) Tablet PO 09/25/24 16:14
BIDPRN PRN
constipation
Sennosides 17.2 mg 08/29/24 08:00 08/29/24 11:53
Sennosides (Senokot) 8.6 Mg Tablet PO 09/26/24 07:59 17.2 mg
DAILY HUGH Administration
Sertraline HCl 200 mg 08/29/24 08:00 08/29/24 08:43
Sertraline 100 Mg Tablet PO 09/26/24 07:59 200 mg
DAILY HUGH Administration
Sodium Chloride 0 flush 08/28/24 13:00
Sodium Chloride 0.9% (Flush) Syringe IV 09/25/24 12:59
PER PROTOCOL HUGH
Sterile Water 10 ml 08/29/24 14:00 08/29/24 13:57
Sterile Water For Injection 10 Ml Vial IV 09/26/24 13:59 10 ml
Q24H HUGH Administration
Zonisamide 200 mg 08/28/24 22:00 08/29/24 22:19
Zonisamide 100 Mg Capsule PO 09/25/24 21:59 200 mg
HS HUGH Administration
[2024-08-30 08:16] LABS: Blood Urea Nitrogen 11 mg/dl (7-17); Calcium 8.8 mg/dl (8.4-10.2); Carbon Dioxide 25 mmol/L (22-30); Chloride 104 mmol/L (98-107); Estimated Creatinine Clearance 86 ml/min; Glucose 64 mg/dl (70-99); Potassium 3.6 mmol/L (3.5-5.1); Sodium 134 mmol/L (135-145); eGFR > 60.00
[2024-08-30] MEDS: NON-FORMULARY ITEM 300 MG PO (09:36)
[2024-08-30] MEDS: ZOLOFT 200 MG PO (09:36)
[2024-08-30] MEDS: NON-FORMULARY ITEM 2400 MG PO (09:36)
--- NOTE | 2024-08-30 10:33 | CM ---
CM spoke with Meka's mother who advised that Meka lives in the home with family who provides all care with [facility] Duty nursing visits 2-3 times/week. Family has a w/c van for transport and do not have any concerns for discharge to
home.
[facility] ([place] [facility])
[2024-08-30 11:01] VITALS: BP 137/88
[2024-08-30] MEDS: ROCEPHIN 1000 MG IV (11:06)
[2024-08-30] MEDS: KEPPRA 1500 MG PO (11:07)
[2024-08-30] MEDS: STERILE WATER FOR INJECTION 10 ML IV (11:07)
[2024-08-30] MEDS: VITAMIN C 500 MG PO (11:07)
[2024-08-30] MEDS: SENOKOT 17.2 MG PO (11:07)
[2024-08-30] MEDS: TRILEPTAL 600 MG PO (11:08)
[2024-08-30] MEDS: COLACE 300 MG PO (11:08)
[2024-08-30] MEDS: HIPREX 1 GRAM PO (11:08)
[2024-08-30] MEDS: THERAGRAN 1 TABLET PO (11:08)
[2024-08-30] MEDS: VISBIOME 1 CAP PO (11:08)
--- NOTE | 2024-08-30 13:14 | PN.CDI ---
CDI
- -
CDI:
Physician Documentation Request
Admit Date: 08/28/24 12:16
Dear Doctor Timothy,
Clinical Indicators:
Patient admitted with sepsis due UTI
08/29: Magnesium sulfate 2 gm IV rider x 1
Potassium Chloride 40 meq elixir x 1.
Potassium/Magnesium levels:
08/29/24
06:00
Potassium 3.3 L D
Magnesium 1.5 L
Based on the above, could you clarify in the progress notes, the appropriate diagnosis, if significant, that supports the above abnormalities and additional evaluation, monitoring and/or treatment rendered:
Hypokalemia/Hypomagnesemia
Abnormal lab values, clinically insignificant
Other, please specify
Use of terms such as suspected, likely, concern for, or probable (associated with a specific diagnosis that is being evaluated, monitored, or treated as if it exists) are acceptable and can be coded in the inpatient setting, when documented at the
time of discharge.
Thank you,
CHAD Bocanegra RN
CDI Specialist
available via tiger text
Please use your independent medical judgment in providing your response.
--- NOTE | 2024-08-30 13:20 | PN.CDI ---
CDI
- -
CDI:
Physician Documentation Request
Admit Date: 08/28/24 12:16
Dear Doctor Timothy,
.
Clinical Indicators:
Height: 5 ft
Weight: 86 lbs 12.8 oz
BMI:
08/28/24
20:00
Body Mass Index (BMI) 17.0
08/29 note, 'BMI 17.0 underweight.'
If possible, please provide an associated diagnosis related to the abnormal BMI (< or = to 19), such as:
Underweight
BMI is not significant
Other, please specify
Use of terms such as suspected, likely, concern for, or probable (associated with a specific diagnosis that is being evaluated, monitored, or treated as if it exists) are acceptable and can be coded in the inpatient setting, when documented at the
time of discharge.
Thank you,
CHAD Bocanegra RN
CDI Specialist
available via tiger text
Please use your independent medical judgment in providing your response.
[2024-08-30] MEDS: STERILE WATER FOR INJECTION IV (13:38)
--- NOTE | 2024-08-30 14:17 | W.PN.HOSP.TC ---
Today's Communication/Plan
-
Discharge home today
Assessment / Plan
Assessment / Plan
Impression:
29-year-old female presents to the emergency room for evaluation of frequent seizures. Patient has history of cerebral palsy and seizure disorder. She is on multiple antiepileptic medications. Patient is followed at [facility] by Dr. Clinton.
Patient was recently diagnosed with a urinary tract infection and treated with Augmentin. Patient completed the course of antibiotics 5 or 6 days ago. Started to have foul smelling urine again and developed seizure.
Last seizure was morning of day of admission.
Patient started on IV Rocephin and will be admitted under hospitalist.
Urine culture came back shows pansensitive E. coli, patient will be discharged on Ceftin.
Neurology recommended to increase zonisamide from 150 mg to dosing of 200 mg daily.
Patient will be discharged home today
Assessment/plan:
Breakthrough seizure
Possible triggered by urinary tract infection.
Continue current seizure regimen
Neurology consulted
zonisamide increased from 150 mg to dosing of 200 mg daily
Seizure precaution
Sepsis secondary to UTI
Patient meets sepsis criteria on admission
Heart rate 104
WBCs 12.4
No fever
Source of infection is UTI
IV antibiotic in form of Rocephin
Blood culture pending
Urine culture pansensitive E. coli.
Discharged home on Ceftin
Cerebral palsy
Continue baclofen pump.
Continue home meds.
Anxiety/depression
Continue home meds
CODE STATUS: Full code
DVT prophylaxis: SCDs
Diet: Regular diet (as tolerated).
Family communication: Discussed with mother at bedside
Disposition: Discharge home
Total time spent on today's encounter was 65 minutes which included time spent in counseling the patient/family regarding diagnosis and treatment plan as listed above, goals of care, and symptom management. Case was discussed with nursing staff,
specialists, and care coordinators/case management. All labs and imaging personally reviewed by me. Remainder the time spent in detailed review of previous records, lab data, imaging, and other medical provider documentation.
Anticipated Discharge: Today
Subjective/Interval History
-
Date of Service: August 30, 2024
No further seizure.
Urine culture shows pansensitive E. coli.
Will be discharged home today
Objective Data
-
Labs:
Laboratory Results
08/30/24
06:42
WBC 4.8
Hgb 10.3 L
Hct 29.1 L
Plt Count 135
Sodium 134 L
Potassium 3.6
Chloride 104
Carbon Dioxide 25
BUN 11
Creatinine 0.4 L
Glucose 64 L
Calcium 8.8
Vital Signs:
Vital Signs
Temp Pulse Resp BP Pulse Ox
97.7 F 72 17 137/88 96
08/30/24 11:01 08/30/24 11:01 08/30/24 11:01 08/30/24 11:01 08/30/24 11:01
I&O
08/29/24 08/30/24 08/31/24
06:59 06:59 06:59
Intake Total 100 / 100 240 / 240
Balance 100 / 100 240 / 240
Physical Exam
-
General: Comfortable
HEENT: Moist Mucous Membranes, No Ptosis, PERRLA and Nose Appears Normal
Respiratory: Rales and Non Labored Respirations
Cardiac: Regular Rhythm and S1/S2
Breast: Deferred by me
GI: Soft, Nontender, Nondistended and Normal Bowel Sounds
Genito-urinary: No Costovertebral Tender
Musculoskeletal: No Edema and Other (Contracted extremities)
Skin: Rash (Bilateral lower extremity rash)
Neuro: Awake and Other (Contracted upper and lower extremities.)
Psych: Calm
Data Reviewed
-
Diagnostic Radiology: Image personally visualized and interpreted and Report Reviewed by me
CT Scan: Image personally visualized and interpreted and Report Reviewed by me
Ultrasound: Image personally visualized and interpreted and Report Reviewed by me
MRI: Image personally visualized and interpreted and Report Reviewed by me
Medical Tests (Nuc Med, Echo etc): Image personally visualized and interpreted and Report Reviewed by me
Labs: Labs Reviewed by me
Old Records: Reviewed
--- NOTE | 2024-08-30 14:19 | W.DCSUMMARY ---
Addendum entered and electronically signed by Mariah Aguirre MD 08/30/24 15:22:
Underweight
Hypokalemia/Hypomagnesemia
Original Note:
Discharge Summary
Discharge Data
Date of Admission: 08/28/24
Date of Discharge: 08/30/24
-
Pending Results: No
Hospital Course
Hospital course
29-year-old female presents to the emergency room for evaluation of frequent seizures. Patient has history of cerebral palsy and seizure disorder. She is on multiple antiepileptic medications. Patient is followed at [facility] by Dr. Clinton.
Patient was recently diagnosed with a urinary tract infection and treated with Augmentin. Patient completed the course of antibiotics 5 or 6 days ago. Started to have foul smelling urine again and developed seizure.
Last seizure was morning of day of admission.
Patient started on IV Rocephin and will be admitted under hospitalist.
Urine culture came back shows pansensitive E. coli, patient will be discharged on Ceftin.
Neurology recommended to increase zonisamide from 150 mg to dosing of 200 mg daily.
Patient will be discharged home today.
During hospitalization patient was treated from the following
Breakthrough seizure
Possible triggered by urinary tract infection.
Continue current seizure regimen
Neurology consulted
zonisamide increased from 150 mg to dosing of 200 mg daily
Seizure precaution
Sepsis secondary to UTI
Patient meets sepsis criteria on admission
Heart rate 104
WBCs 12.4
No fever
Source of infection is UTI
IV antibiotic in form of Rocephin
Blood culture pending
Urine culture pansensitive E. coli.
Discharged home on Ceftin
Cerebral palsy
Continue baclofen pump.
Continue home meds.
Anxiety/depression
Continue home meds
CODE STATUS: Full code
DVT prophylaxis: SCDs
Diet: Regular diet (as tolerated).
Family communication: Discussed with mother at bedside
Disposition: Discharge home.
Total time spent on today's encounter was 40 minutes which included time spent in counseling the patient/family regarding diagnosis and treatment plan as listed above, goals of care, and symptom management. Case was discussed with nursing staff,
specialists, and care coordinators/case management. All labs and imaging personally reviewed by me. Remainder the time spent in detailed review of previous records, lab data, imaging, and other medical provider documentation.
Anticipated Discharge: Today
Discharge Plan
-
Patient Disposition: Home (Routine Discharge)
Discharge Diagnosis/Procedures: breakthrough Seizure
UTI
Condition: Fair
Diet: As tolerated and Regular
Activity: As tolerated
Instructions: Cefuroxime
Referrals:
Jassi Morales MD [Active, Neurology]
Winter Moody MD [Family Provider, [facility]]
Prescriptions:
New
zonisamide 100 mg Capsule
200 mg PO HS 30 Days Qty: 60 0RF
cefuroxime axetil 500 mg tablet
500 mg PO BID 5 Days Qty: 10 0RF
Continued
clonazepam 0.5 MG tablet
0.5 mg PO BIDPRN PRN (Reason: anxiety)
sertraline 100 MG tablet
200 mg PO DAILY
hydroxyzine HCl 50 MG tablet
50 mg PO HS
oxcarbazepine 300 MG tablet
600 mg PO BID
levetiracetam [Keppra] 750 MG tablet
1,500 mg PO BID@1100,2300
gabapentin [Gralise] 600 MG tablet extended release 24 hr
2,400 mg PO DAILY@0930
Baclofen Pump [Patient's Own Baclofen Pump:] 1 EACH Pump.Resvr
0 ea SC .CONTINOUS
therapeutic multivitamin Tablet
1 tab PO DAILY
fexofenadine 180 mg Tablet
180 mg PO DAILYPRN PRN (Reason: allergies)
methenamine hippurate 1 gram Tablet
1 g PO BID
ascorbic acid (vitamin C) [Vitamin C] 500 mg Tablet
500 mg PO DAILY
Alyacen (28) 1-35 mg-mcg Tablet
1 tab PO HS
Visbiome 112.5 billion cell Capsule
1 cap PO DAILY
melatonin 10 mg Tablet
10 mg PO HS
Nayzilam 5 mg/spray (0.1 mL) spray,non-aerosol
1 spray INTRANASAL DAILYPRN PRN (Reason: seizures)
GennaMD 130 mg Capsule
130 mg PO DAILY
sennosides [senna] 8.6 mg Tablet
17.2 mg PO DAILY
docusate sodium [Colace] 100 mg Capsule
300 mg PO DAILY
gabapentin [Gralise] 300 mg Tablet Extended Release 24 Hr
300 mg PO DAILY@0930
Discontinued
zonisamide 50 mg Capsule
150 mg PO HS
Discharge Orders:
Discharge Patient (As Directed); Ordered 08/30/24
Ordered By: Mariah Aguirre
Discharge Date and Time
Print Language: CZECH
== END 2024-08-30 14:34 | disposition home health service (06) | DRG 871 ==
LOC: 3 WEST ACU 12:16
PROVIDERS: ADMITTING PHYSICIAN General Practice; CONSULT PHYSICIAN Psychiatry & Neurology Neurology; EMERGENCY PHYSICIAN Emergency Medicine; FAMILY PHYSICIAN Family Medicine
DX: A41.9 Sepsis, unspecified organism (principal); G80.0 Spastic quadriplegic cerebral palsy; G40.919 Epilepsy, unspecified, intractable, without status epilepticus; N39.0 Urinary tract infection, site not specified; Z68.1 Body mass index [BMI] 19.9 or less, adult; Z79.899 Other long term (current) drug therapy; F32.A Depression, unspecified; F41.9 Anxiety disorder, unspecified; R63.6 Underweight; E83.42 Hypomagnesemia; E87.6 Hypokalemia
CPT/HCPCS: 74022; 80048; 80053; 81003; 81015; 82306; 82607; 82728; 82746; 83735; 84439; 84443; 85025; 85027; 85652; 87040; 87086; 87088; 87186; 92610; 96374; 99285

== ENCOUNTER → 2024-10-24 14:54 | Outpatient (REF) | payer OTHER, SELFPAY ==
[2024-10-24 15:45] LABS: ALT (SGPT) 55 U/L (0-35); AST (SGOT) 52 U/L (14-36); Albumin 4.3 g/dl (3.5-5.0); Alkaline Phosphatase 117 U/L (38-126); Blood Urea Nitrogen 6 mg/dl (7-17); Calcium 8.9 mg/dl (8.4-10.2); Carbon Dioxide 25 mmol/L (22-30); Chloride 99 mmol/L (98-107); Glucose 74 mg/dl (70-99); Potassium 4.0 mmol/L (3.5-5.1); Sodium 130 mmol/L (135-145); Total Protein 7.6 g/dl (6.3-8.2); eGFR > 60.00
== END ==
LOC: REG 14:54
PROVIDERS: ATTENDING PHYSICIAN Family Medicine
DX: R79.89 Other specified abnormal findings of blood chemistry (principal); G40.909 Epilepsy, unspecified, not intractable, without status epilepticus; E87.1 Hypo-osmolality and hyponatremia
CPT/HCPCS: 36415; 80053; 80183; 84439; 84443

== ENCOUNTER → 2024-12-20 16:54 | Outpatient (REF) | payer OTHER, SELFPAY ==
[2024-12-20 18:15] LABS: Blood Urea Nitrogen 10 mg/dl (7-17); Calcium 8.8 mg/dl (8.4-10.2); Carbon Dioxide 24 mmol/L (22-30); Chloride 100 mmol/L (98-107); Glucose 68 mg/dl (70-99); Potassium 3.8 mmol/L (3.5-5.1); Sodium 129 mmol/L (135-145); eGFR > 60.00
== END ==
LOC: REG 16:54
PROVIDERS: ATTENDING PHYSICIAN Family Medicine
DX: E87.1 Hypo-osmolality and hyponatremia (principal); E03.9 Hypothyroidism, unspecified
CPT/HCPCS: 36415; 80048; 84443

== ENCOUNTER → 2025-01-09 15:02 | Outpatient (REF) | payer OTHER, SELFPAY ==
[2025-01-09 16:08] LABS: Sodium 133 mmol/L (135-145)
== END ==
LOC: REG 15:02
PROVIDERS: ATTENDING PHYSICIAN Family Medicine
DX: E87.1 Hypo-osmolality and hyponatremia (principal)
CPT/HCPCS: 36415; 84295

== ENCOUNTER → 2025-01-30 14:57 | Outpatient (REF) | payer OTHER, SELFPAY ==
[2025-01-30 16:43] LABS: Sodium 132 mmol/L (135-145)
== END ==
LOC: REG 14:57
PROVIDERS: ATTENDING PHYSICIAN Family Medicine
DX: E87.1 Hypo-osmolality and hyponatremia (principal); E03.9 Hypothyroidism, unspecified
CPT/HCPCS: 36415; 84295; 84443

== ENCOUNTER → 2025-02-28 15:58 | Outpatient (REF) | payer OTHER, SELFPAY ==
[2025-02-28 16:45] LABS: Urine Character Cloudy (Clear)
[2025-02-28 16:50] LABS: Urine Squamous Cell 0-2 /LPF (Few)
[2025-02-28 16:51] LABS: Urine White Cell 80-90 /HPF (0-5)
== END ==
LOC: REG 15:58
PROVIDERS: ATTENDING PHYSICIAN Urology; FAMILY PHYSICIAN Family Medicine
DX: N39.0 Urinary tract infection, site not specified (principal)
CPT/HCPCS: 81003; 81015; 87077; 87086; 87186